=== PATIENT | female | born 1935 | race Caucasian/White ===

== ENCOUNTER → 2017-03-12 | Outpatient (CLI) | payer OTHER ==
[~2017-03-12] MED LIST: ACULAR0.4 ML OPH; ALEVE PM CAPLE1 EACH PO; AMARYL2 MG PO; AMOXICILLIN875 MG PO; ASPIR-LOW81 MG PO; ATIVAN0.5 MG PO; CLONIDINE0.2 MG PO; CYMBALTA30 MG PO; Carafate1 GM PO; FENOFIBRATE145 M1 PO; FERROUS SULFAT325 MG PO; FLUOXETINE20 MG PO; LOVASTATIN20 MG PO; NEURONTIN300 MG PO; NEXIUM40 MG PO; OCUFLOX 0.3% 5 M5 ML OPH; OXYCODONE AND A1 T12 PO; PERCOCET 325 MG1 TA3 PO; PHENYLEPHRINE 2.5% OU; PRED FORTE 1 ML1 ML OPH; PREDNISONE5 MG PO; PRILOSEC20 MG PO; PROTONIX40 MG PO; VITAMIN D50000 I3 PO; ZESTRIL20 MG PO
== END | disposition home or self-care (01) ==
LOC: RAD 11:10
DX: R06.02 Shortness of breath (principal); I10 Essential (primary) hypertension; E11.9 Type 2 diabetes mellitus without complications

== ENCOUNTER 2017-11-22 10:22 | Emergency (ER) | payer OTHER ==
[~2017-11-22] VITALS: Ht 162.5 cm; Wt 76.7 kg
[2017-11-22 10:36] VITALS: BP 145/75
[2017-11-22 10:55] LABS: BILIRUBIN NEGATIVE (NEGATIVE); BLOOD 2+ (NEGATIVE); CLARITY CLOUDY (CLEAR); COLOR YELLOW (YELLOW); GLUCOSE NEGATIVE (NEGATIVE); KETONE NEGATIVE (NEGATIVE); LEUKO ESTERASE 3+ (NEGATIVE); NITRITE POSITIVE (NEGATIVE); UROBILINOGEN 0.2 E.U./dl (0.2-1.0)
[2017-11-22 11:10] LABS: BACTERIA 4+; RBC TNTC rbc/hpf (0-2); WBC TNTC wbc/hpf (0-5)
[2017-11-22] MEDS ORDERED: ZOFRAN4 MG PO (11:15)
[2017-11-22] MEDS ORDERED: PYRIDIUM200 M1 PO (11:15)
[2017-11-22] MEDS ORDERED: LEVAQUIN750 M1 PO (11:15)
== END 2017-11-22 11:19 | disposition home or self-care (01) ==
LOC: ED 10:22
PROVIDERS: Emergency Medicine
DX: N30.01 Acute cystitis with hematuria (principal); R03.0 Elevated blood-pressure reading, without diagnosis of hypertension; Z88.1 Allergy status to other antibiotic agents; Z79.899 Other long term (current) drug therapy; Z79.82 Long term (current) use of aspirin

== ENCOUNTER → 2018-02-18 | Outpatient (CLI) | payer OTHER ==
[~2018-02-18] MED LIST changes: +LEVAQUIN750 M1 PO; +PYRIDIUM200 M1 PO; +ZOFRAN4 MG PO
[2018-02-18 13:56] LABS: BASO # 0.1 10*3/uL (0.0-0.1); BASO % 0.7 % (0.0-1.0); EOS # 0.2 10*3/uL (0.0-0.4); EOS % 2.1 % (1.0-4.0); HEMATOCRIT 39.5 % (37.0-47.0); LYMPH # 0.9 10*3/uL (1.3-4.4); LYMPH % 12.6 % (27.0-41.0); MEAN CELL VOLUME 87.2 fl (81.0-99.0); MEAN CORPUSCULAR HGB 26.5 pg (27.0-31.0); MEAN CORPUSCULAR HGB CONC 30.4 g/dl (33.0-37.0); MEAN PLATELET VOLUME 11.5 fl (9.6-12.3); MONO # 0.5 10*3/uL (0.1-1.0); MONO % 6.8 % (3.0-9.0); NEUT # 5.4 10*3/uL (2.3-7.9); NEUT % 76.5 % (47.0-73.0); PLATELET COUNT AUTOMATED 257 10*3/uL (130-400); RED BLOOD COUNT 4.53 10*6/uL (4.10-5.10); RED CELL DISTRI WIDTH 14.5 % (0-14.5); WHITE BLOOD COUNT 7.1 10*3/uL (4.8-10.8)
[2018-02-18 14:12] LABS: ALBUMIN 3.6 gm/dl (3.1-4.5); ALKALINE PHOSPHATASE 179 U/L (45-117); BUN 15 mg/dl (7-24); CHLORIDE 102 mmol/L (98-107); CREATININE 0.97 mg/dL (0.55-1.02); POTASSIUM 3.9 mmol/L (3.5-5.1); SGOT/AST 53 IU/L (3-35); SGPT/ALT 79 U/L (12-78); SODIUM 134 mmol/L (136-145); TOTAL PROTEIN 7.2 gm/dL (6.4-8.2)
[2018-02-18 15:23] LABS: BILIRUBIN NEGATIVE (NEGATIVE); BLOOD NEGATIVE (NEGATIVE); CLARITY CLEAR (CLEAR); COLOR YELLOW (YELLOW); GLUCOSE NEGATIVE (NEGATIVE); KETONE NEGATIVE (NEGATIVE); LEUKO ESTERASE NEGATIVE (NEGATIVE); NITRITE NEGATIVE (NEGATIVE); PH 6.5 (5.0-9.0); SPECIFIC GRAVITY <= 1.005 (1.005-1.030); UROBILINOGEN 0.2 E.U./dl (0.2-1.0)
[2018-02-18 16:02] LABS: EPITHELIAL CELLS 0-2; WBC 0-2 wbc/hpf (0-5)
== END | disposition home or self-care (01) ==
LOC: US 12:30 → LAB 12:44
PROVIDERS: Urology
DX: I10 Essential (primary) hypertension (principal); N39.0 Urinary tract infection, site not specified; N28.89 Other specified disorders of kidney and ureter

== ENCOUNTER 2019-11-17 01:30 | Emergency (ER) | payer OTHER ==
[~2019-11-17] VITALS: Ht 162.5 cm; Wt 68.9 kg
[2019-11-17 01:32] VITALS: BP 215/126
[2019-11-17 01:57] LABS: BASO % 0.2 % (0.0-1.0); EOS # 0.1 10*3/uL (0.0-0.4); EOS % 1.7 % (1.0-4.0); HEMATOCRIT 42.1 % (37.0-47.0); HEMOGLOBIN 13.3 g/dl (12.0-16.0); LYMPH # 0.8 10*3/uL (1.3-4.4); LYMPH % 13.4 % (27.0-41.0); MEAN CELL VOLUME 89.4 fl (81.0-99.0); MEAN CORPUSCULAR HGB 28.2 pg (27.0-31.0); MEAN CORPUSCULAR HGB CONC 31.6 g/dl (33.0-37.0); MEAN PLATELET VOLUME 10.5 fl (9.6-12.3); MONO # 0.5 10*3/uL (0.1-1.0); MONO % 8.3 % (3.0-9.0); NEUT # 4.5 10*3/uL (2.3-7.9); NEUT % 75.7 % (47.0-73.0); PLATELET COUNT AUTOMATED 167 10*3/uL (130-400); RED BLOOD COUNT 4.71 10*6/uL (4.10-5.10); RED CELL DISTRI WIDTH 13.9 % (0-14.5); WHITE BLOOD COUNT 5.9 10*3/uL (4.8-10.8)
[2019-11-17 02:17] LABS: ALBUMIN 3.6 gm/dl (3.1-4.5); ALKALINE PHOSPHATASE 103 U/L (45-117); BUN 16 mg/dl (7-24); CHLORIDE 106 mmol/L (98-107); POTASSIUM 4.3 mmol/L (3.5-5.1); SGOT/AST 16 IU/L (3-35); SGPT/ALT 19 U/L (12-78); SODIUM 141 mmol/L (136-145); TOTAL PROTEIN 6.9 gm/dL (6.4-8.2)
[2019-11-17 02:45] LABS: ACT PARTIAL THROMBO TIME 27.7 SECONDS (20.0-32.1); INTERNATIONAL NORM RATIO 0.9 (2.0-3.5)
== END 2019-11-17 03:50 | disposition other institution (70) ==
LOC: ED 01:30
PROVIDERS: Emergency Medicine
DX: S70.02XA Contusion of left hip, initial encounter (principal); R33.9 Retention of urine, unspecified; I10 Essential (primary) hypertension; K21.9 Gastro-esophageal reflux disease without esophagitis; E78.00 Pure hypercholesterolemia, unspecified; M19.90 Unspecified osteoarthritis, unspecified site; Z88.2 Allergy status to sulfonamides; Z79.2 Long term (current) use of antibiotics; Z79.899 Other long term (current) drug therapy; Z79.82 Long term (current) use of aspirin; Z90.49 Acquired absence of other specified parts of digestive tract; Z90.710 Acquired absence of both cervix and uterus; Z98.61 Coronary angioplasty status; Z98.890 Other specified postprocedural states; Z86.73 Personal history of transient ischemic attack (TIA), and cerebral infarction without residual deficits; W18.11XA Fall from or off toilet without subsequent striking against object, initial encounter; Y93.89 Activity, other specified; Y92.091 Bathroom in other non-institutional residence as the place of occurrence of the external cause; Y99.8 Other external cause status

== ENCOUNTER 2019-12-14 16:12 | Inpatient (IN) | payer OTHER ==
[~2019-12-14] VITALS: Ht 160 cm; Wt 68.4 kg
[2019-12-14 16:13] VITALS: BP 96/52
[2019-12-14 16:58] LABS: BASO % 0.4 % (0.0-1.0); EOS # 0.4 10*3/uL (0.0-0.4); EOS % 4.5 % (1.0-4.0); HEMATOCRIT 40.4 % (37.0-47.0); HEMOGLOBIN 12.7 g/dl (12.0-16.0); LYMPH # 1.5 10*3/uL (1.3-4.4); LYMPH % 18.1 % (27.0-41.0); MEAN CELL VOLUME 90.8 fl (81.0-99.0); MEAN CORPUSCULAR HGB 28.5 pg (27.0-31.0); MEAN CORPUSCULAR HGB CONC 31.4 g/dl (33.0-37.0); MEAN PLATELET VOLUME 10.6 fl (9.6-12.3); MONO # 0.7 10*3/uL (0.1-1.0); NEUT # 5.4 10*3/uL (2.3-7.9); NEUT % 67.4 % (47.0-73.0); PLATELET COUNT AUTOMATED 156 10*3/uL (130-400); RED BLOOD COUNT 4.45 10*6/uL (4.10-5.10); RED CELL DISTRI WIDTH 14.4 % (0-14.5)
[2019-12-14 17:09] LABS: ACT PARTIAL THROMBO TIME 30.3 SECONDS (20.0-32.1); INTERNATIONAL NORM RATIO 0.9 (2.0-3.5)
[2019-12-14 17:16] LABS: ALBUMIN 3.2 gm/dl (3.1-4.5); ALKALINE PHOSPHATASE 149 U/L (45-117); BUN 18 mg/dl (7-24); CHLORIDE 105 mmol/L (98-107); CREATININE 1.25 mg/dL (0.55-1.02); POTASSIUM 3.9 mmol/L (3.5-5.1); SGOT/AST 12 IU/L (3-35); SGPT/ALT 16 U/L (12-78); SODIUM 141 mmol/L (136-145); TOTAL PROTEIN 6.9 gm/dL (6.4-8.2)
[2019-12-14 17:17] LABS: TROPONIN I < 0.015 ng/ml (<0.045)
[2019-12-14 18:00] VITALS: BP 134/47
[2019-12-14] MEDS ORDERED: TYLENOL325 M1 PO (19:30)
[2019-12-14 20:00] VITALS: BP 141/79
[2019-12-14] MEDS ORDERED: DULCOLAX10 M1 R (21:33)
[2019-12-14] MEDS ORDERED: ASPERCREME76.5 GM T (21:33)
[2019-12-14] MEDS ORDERED: CIPRO500 MG PO (21:34)
[2019-12-14] MEDS ORDERED: CRESTOR10 M1 PO (21:37)
[2019-12-14] MEDS ORDERED: Ipratropium Brom3 ML INH (21:38)
[2019-12-14] MEDS ORDERED: APRESOLINE10 MG PO (21:39)
[2019-12-14] MEDS ORDERED: HUMALOG100 UNIT/2 SC (21:42)
[2019-12-14] MEDS ORDERED: JANUVIA25 MG PO (21:42)
[2019-12-14] MEDS ORDERED: LIDODERM1 EACH T (21:44)
[2019-12-14] MEDS ORDERED: LASIX20 MG PO (21:44)
[2019-12-14] MEDS ORDERED: MELATONIN5 M7 PO (21:45)
[2019-12-14] MEDS ORDERED: GLUCOPHAGE500 M1 PO (21:46)
[2019-12-14] MEDS ORDERED: MUCINEX1200 M1 PO (21:48)
[2019-12-14] MEDS ORDERED: MILK OF MA400 MG/5 M PO (21:48)
[2019-12-14] MEDS ORDERED: NITROSTAT0.4 MG SL (21:49)
[2019-12-14] MEDS ORDERED: OXYCODONE HCL10 M1 PO (21:50)
[2019-12-14] MEDS ORDERED: PERCOCET 5-3251 EACH PO ×2 (21:51→21:52)
[2019-12-14] MEDS ORDERED: PLAVIX75 M1 PO (21:53)
[2019-12-14] MEDS ORDERED: MIRALAX119 GM PO (21:54)
[2019-12-14] MEDS ORDERED: PROTONIX IV40 MG PO (21:55)
[2019-12-14] MEDS ORDERED: REMERON15 M2 PO (21:55)
[2019-12-14] MEDS ORDERED: SENOKOT8.6 MG PO (21:57)
[2019-12-14] MEDS ORDERED: TOLTERODINE TART4 M1 PO (21:58)
[2019-12-15] VITALS: BP 111/61
[2019-12-15 06:44] LABS: BASO % 0.3 % (0.0-1.0); EOS # 0.3 10*3/uL (0.0-0.4); EOS % 5.2 % (1.0-4.0); HEMATOCRIT 36.6 % (37.0-47.0); HEMOGLOBIN 11.6 g/dl (12.0-16.0); LYMPH # 1.1 10*3/uL (1.3-4.4); LYMPH % 19.4 % (27.0-41.0); MEAN CELL VOLUME 88.4 fl (81.0-99.0); MEAN CORPUSCULAR HGB CONC 31.7 g/dl (33.0-37.0); MEAN PLATELET VOLUME 10.9 fl (9.6-12.3); MONO # 0.5 10*3/uL (0.1-1.0); MONO % 9.4 % (3.0-9.0); NEUT # 3.7 10*3/uL (2.3-7.9); NEUT % 64.7 % (47.0-73.0); PLATELET COUNT AUTOMATED 129 10*3/uL (130-400); RED BLOOD COUNT 4.14 10*6/uL (4.10-5.10); RED CELL DISTRI WIDTH 14.4 % (0-14.5); WHITE BLOOD COUNT 5.7 10*3/uL (4.8-10.8)
[2019-12-15 06:53] LABS: BUN 14 mg/dl (7-24); CHLORIDE 110 mmol/L (98-107); CREATININE 0.86 mg/dL (0.55-1.02); PHOSPHOROUS 3.4 mg/dL (2.5-4.9); POTASSIUM 3.7 mmol/L (3.5-5.1); SODIUM 144 mmol/L (136-145)
[2019-12-15 08:00] VITALS: BP 150/88
[2019-12-15 12:00] VITALS: BP 137/75
[2019-12-15 16:00] VITALS: BP 160/75
[2019-12-15 20:00] VITALS: BP 184/72
[2019-12-15 21:42] LABS: BILIRUBIN NEGATIVE (NEGATIVE); BLOOD NEGATIVE (NEGATIVE); CLARITY CLEAR (CLEAR); COLOR YELLOW (YELLOW); GLUCOSE NEGATIVE (NEGATIVE); KETONE NEGATIVE (NEGATIVE); LEUKO ESTERASE 2+ (NEGATIVE); NITRITE NEGATIVE (NEGATIVE); SPECIFIC GRAVITY 1.025 (1.005-1.030); UROBILINOGEN 0.2 E.U./dl (0.2-1.0)
[2019-12-15 21:43] LABS: WBC 21-30 wbc/hpf (0-5)
[2019-12-15 21:44] LABS: BACTERIA 1+
[2019-12-16] VITALS: BP 173/68
[2019-12-16 00:30] VITALS: BP 158/78
[2019-12-16 05:55] VITALS: BP 154/86
[2019-12-16 08:00] VITALS: BP 149/57
[2019-12-16 12:00] VITALS: BP 151/69
[2019-12-16 16:00] VITALS: BP 143/63
== END 2019-12-16 16:55 | disposition short-term general hospital (02) | DRG 682 ==
LOC: ED 16:12 → EDHOLD 17:38 → 5E 17:38
PROVIDERS: Emergency Medicine; Registered Nurse; Student in an Organized Health Care Education/Training Program; ADMIT Emergency Medicine
DX: N17.0 Acute kidney failure with tubular necrosis (principal); S72.145A Nondisplaced intertrochanteric fracture of left femur, initial encounter for closed fracture; G93.41 Metabolic encephalopathy; E44.0 Moderate protein-calorie malnutrition; N30.00 Acute cystitis without hematuria; I95.9 Hypotension, unspecified; R79.89 Other specified abnormal findings of blood chemistry; E83.42 Hypomagnesemia; W19.XXXA Unspecified fall, initial encounter; Y93.89 Activity, other specified; Y92.89 Other specified places as the place of occurrence of the external cause; Y99.8 Other external cause status; Z68.26 Body mass index [BMI] 26.0-26.9, adult; Z88.2 Allergy status to sulfonamides; Z79.899 Other long term (current) drug therapy; Z79.82 Long term (current) use of aspirin; Z90.49 Acquired absence of other specified parts of digestive tract; Z90.710 Acquired absence of both cervix and uterus; Z82.49 Family history of ischemic heart disease and other diseases of the circulatory system; Z83.6 Family history of other diseases of the respiratory system; Z88.8 Allergy status to other drugs, medicaments and biological substances; Z91.040 Latex allergy status; Z79.4 Long term (current) use of insulin

== ENCOUNTER 2020-01-01 09:32 | Inpatient (IN) | payer OTHER ==
[~2020-01-01] VITALS: Ht 162.5 cm; Wt 69.6 kg
[~2020-01-01 09:32] MED LIST changes: +APRESOLINE10 MG PO; +ASPERCREME76.5 GM T; +CIPRO500 MG PO; +CRESTOR10 M1 PO; +DULCOLAX10 M1 R; +GLUCOPHAGE500 M1 PO; +HUMALOG100 UNIT/2 SC; +Ipratropium Brom3 ML INH; +JANUVIA25 MG PO; +LASIX20 MG PO; +LIDODERM1 EACH T; +MELATONIN5 M7 PO; +MILK OF MA400 MG/5 M PO; +MIRALAX119 GM PO; +MUCINEX1200 M1 PO; +NITROSTAT0.4 MG SL; +OXYCODONE HCL10 M1 PO; +PERCOCET 5-3251 EACH PO; +PLAVIX75 M1 PO; +PROTONIX IV40 MG PO; +REMERON15 M2 PO; +SENOKOT8.6 MG PO; +TOLTERODINE TART4 M1 PO; +TYLENOL325 M1 PO
[2020-01-01 09:34] VITALS: BP 98/46
[2020-01-01 11:09] LABS: ALBUMIN 2.8 gm/dl (3.1-4.5); ALKALINE PHOSPHATASE 113 U/L (45-117); BUN 16 mg/dl (7-24); CHLORIDE 104 mmol/L (98-107); CREATININE 0.95 mg/dL (0.55-1.02); LIPASE 50 U/L (73-393); POTASSIUM 3.8 mmol/L (3.5-5.1); SGOT/AST 11 IU/L (3-35); SGPT/ALT 10 U/L (12-78); SODIUM 138 mmol/L (136-145); TOTAL PROTEIN 6.2 gm/dL (6.4-8.2)
[2020-01-01 11:41] LABS: BASO % 0.3 % (0.0-1.0); EOS % 0.1 % (1.0-4.0); HEMATOCRIT 27.7 % (37.0-47.0); HEMOGLOBIN 8.6 g/dl (12.0-16.0); LYMPH % 8.8 % (27.0-41.0); MEAN CELL VOLUME 94.2 fl (81.0-99.0); MEAN CORPUSCULAR HGB 29.3 pg (27.0-31.0); MEAN PLATELET VOLUME 10.3 fl (9.6-12.3); MONO # 0.9 10*3/uL (0.1-1.0); MONO % 8.2 % (3.0-9.0); NEUT # 9.1 10*3/uL (2.3-7.9); PLATELET COUNT AUTOMATED 320 10*3/uL (130-400); RED BLOOD COUNT 2.94 10*6/uL (4.10-5.10); RED CELL DISTRI WIDTH 17.1 % (0-14.5); WHITE BLOOD COUNT 11.1 10*3/uL (4.8-10.8)
[2020-01-01 12:51] LABS: BILIRUBIN NEGATIVE (NEGATIVE); BLOOD NEGATIVE (NEGATIVE); CLARITY CLOUDY (CLEAR); COLOR YELLOW (YELLOW); GLUCOSE NEGATIVE (NEGATIVE); KETONE NEGATIVE (NEGATIVE); LEUKO ESTERASE 1+ (NEGATIVE); NITRITE NEGATIVE (NEGATIVE); UROBILINOGEN 0.2 E.U./dl (0.2-1.0); WBC 51-100 wbc/hpf (0-5)
[2020-01-01 12:52] LABS: BACTERIA 1+
[2020-01-01 14:15] VITALS: BP 125/41
[2020-01-01 16:00] VITALS: BP 145/64
[2020-01-01 20:00] VITALS: BP 111/70
[2020-01-02] VITALS: BP 143/70
[2020-01-02 06:06] LABS: ALBUMIN 2.5 gm/dl (3.1-4.5); ALKALINE PHOSPHATASE 107 U/L (45-117); BUN 9 mg/dl (7-24); CHLORIDE 108 mmol/L (98-107); CREATININE 0.57 mg/dL (0.55-1.02); PHOSPHOROUS 2.9 mg/dL (2.5-4.9); POTASSIUM 3.4 mmol/L (3.5-5.1); SGOT/AST 17 IU/L (3-35); SGPT/ALT 10 U/L (12-78); SODIUM 139 mmol/L (136-145)
[2020-01-02 06:23] LABS: ACT PARTIAL THROMBO TIME 34.2 SECONDS (20.0-32.1)
[2020-01-02 07:26] LABS: BASO % 0.4 % (0.0-1.0); EOS # 0.3 10*3/uL (0.0-0.4); EOS % 3.8 % (1.0-4.0); HEMATOCRIT 29.3 % (37.0-47.0); LYMPH # 1.1 10*3/uL (1.3-4.4); LYMPH % 15.8 % (27.0-41.0); MEAN CELL VOLUME 95.4 fl (81.0-99.0); MEAN CORPUSCULAR HGB 29.3 pg (27.0-31.0); MEAN CORPUSCULAR HGB CONC 30.7 g/dl (33.0-37.0); MEAN PLATELET VOLUME 10.4 fl (9.6-12.3); MONO # 0.6 10*3/uL (0.1-1.0); MONO % 9.2 % (3.0-9.0); NEUT # 4.8 10*3/uL (2.3-7.9); NEUT % 69.8 % (47.0-73.0); PLATELET COUNT AUTOMATED 312 10*3/uL (130-400); RED BLOOD COUNT 3.07 10*6/uL (4.10-5.10); RED CELL DISTRI WIDTH 16.8 % (0-14.5); WHITE BLOOD COUNT 6.8 10*3/uL (4.8-10.8)
[2020-01-02 08:00] VITALS: BP 130/90
[2020-01-02 12:00] VITALS: BP 124/57
[2020-01-02 16:00] VITALS: BP 149/59
[2020-01-02 20:00] VITALS: BP 131/76
[2020-01-02 22:00] VITALS: BP 131/76
[2020-01-03] VITALS: BP 134/59
[2020-01-03 12:00] VITALS: BP 111/68
[2020-01-03 16:00] VITALS: BP 153/66
[2020-01-03 20:00] VITALS: BP 148/61
[2020-01-04] VITALS: BP 129/82
[2020-01-04 06:00] LABS: ALBUMIN 2.6 gm/dl (3.1-4.5); ALKALINE PHOSPHATASE 110 U/L (45-117); BUN 9 mg/dl (7-24); CHLORIDE 109 mmol/L (98-107); CREATININE 0.61 mg/dL (0.55-1.02); POTASSIUM 3.8 mmol/L (3.5-5.1); SGOT/AST 17 IU/L (3-35); SGPT/ALT 12 U/L (12-78); SODIUM 139 mmol/L (136-145); TOTAL PROTEIN 6.1 gm/dL (6.4-8.2)
[2020-01-04 06:09] LABS: BASO % 0.6 % (0.0-1.0); EOS # 0.3 10*3/uL (0.0-0.4); EOS % 6.6 % (1.0-4.0); HEMATOCRIT 28.3 % (37.0-47.0); HEMOGLOBIN 8.8 g/dl (12.0-16.0); LYMPH # 1.1 10*3/uL (1.3-4.4); LYMPH % 21.6 % (27.0-41.0); MEAN CELL VOLUME 92.8 fl (81.0-99.0); MEAN CORPUSCULAR HGB 28.9 pg (27.0-31.0); MEAN CORPUSCULAR HGB CONC 31.1 g/dl (33.0-37.0); MEAN PLATELET VOLUME 10.2 fl (9.6-12.3); MONO # 0.5 10*3/uL (0.1-1.0); MONO % 9.2 % (3.0-9.0); NEUT # 3.2 10*3/uL (2.3-7.9); NEUT % 60.8 % (47.0-73.0); PLATELET COUNT AUTOMATED 341 10*3/uL (130-400); RED BLOOD COUNT 3.05 10*6/uL (4.10-5.10); RED CELL DISTRI WIDTH 16.1 % (0-14.5); WHITE BLOOD COUNT 5.2 10*3/uL (4.8-10.8)
[2020-01-04 08:00] VITALS: BP 132/66
[2020-01-04 12:00] VITALS: BP 128/70
[2020-01-04 16:00] VITALS: BP 149/64
[2020-01-04 20:00] VITALS: BP 149/73
[2020-01-05] VITALS: BP 139/56
[2020-01-05 06:04] LABS: BASO % 0.4 % (0.0-1.0); EOS # 0.3 10*3/uL (0.0-0.4); HEMATOCRIT 29.4 % (37.0-47.0); HEMOGLOBIN 9.2 g/dl (12.0-16.0); LYMPH # 1.3 10*3/uL (1.3-4.4); LYMPH % 25.4 % (27.0-41.0); MEAN CORPUSCULAR HGB 29.1 pg (27.0-31.0); MEAN CORPUSCULAR HGB CONC 31.3 g/dl (33.0-37.0); MEAN PLATELET VOLUME 9.8 fl (9.6-12.3); MONO # 0.5 10*3/uL (0.1-1.0); MONO % 9.6 % (3.0-9.0); NEUT # 2.8 10*3/uL (2.3-7.9); NEUT % 56.6 % (47.0-73.0); PLATELET COUNT AUTOMATED 347 10*3/uL (130-400); RED BLOOD COUNT 3.16 10*6/uL (4.10-5.10); RED CELL DISTRI WIDTH 15.9 % (0-14.5)
[2020-01-05 06:28] LABS: BUN 11 mg/dl (7-24); CHLORIDE 111 mmol/L (98-107); CREATININE 0.76 mg/dL (0.55-1.02); POTASSIUM 3.7 mmol/L (3.5-5.1); SODIUM 144 mmol/L (136-145)
[2020-01-05 08:00] VITALS: BP 135/58
[2020-01-05 12:00] VITALS: BP 139/55
[2020-01-05 16:00] VITALS: BP 130/65
[2020-01-05 20:00] VITALS: BP 155/70; BP 155/90
[2020-01-06] VITALS: BP 131/56; BP 155/90
[2020-01-06 08:00] VITALS: BP 166/67
[2020-01-06 12:00] VITALS: BP 146/59
[2020-01-06 16:00] VITALS: BP 133/60
[2020-01-06 20:00] VITALS: BP 149/58
[2020-01-07] VITALS: BP 159/70
[2020-01-07 05:39] VITALS: BP 142/84
[2020-01-07 08:00] VITALS: BP 172/81
[2020-01-07 12:00] VITALS: BP 129/61
[2020-01-07] MEDS ORDERED: OXYCODONE HCL10 M1 PO (13:06)
[2020-01-07] MEDS ORDERED: NEURONTIN300 MG PO (13:06)
[2020-01-07] MEDS ORDERED: PERCOCET 5-3251 EACH PO (13:06)
== END 2020-01-07 14:30 | disposition other institution (70) | DRG 194 ==
LOC: ED 09:32 → 4E 13:13 → EDHOLD 13:13 → 4E 13:34
PROVIDERS: Family Medicine; Internal Medicine; Physician Assistant; ADMIT Emergency Medicine
DX: J18.9 Pneumonia, unspecified organism (principal); N30.00 Acute cystitis without hematuria; G45.9 Transient cerebral ischemic attack, unspecified; E44.0 Moderate protein-calorie malnutrition; I95.9 Hypotension, unspecified; R79.89 Other specified abnormal findings of blood chemistry; D64.9 Anemia, unspecified; R29.898 Other symptoms and signs involving the musculoskeletal system; I50.9 Heart failure, unspecified; E83.42 Hypomagnesemia; R62.7 Adult failure to thrive; I25.10 Atherosclerotic heart disease of native coronary artery without angina pectoris; I11.0 Hypertensive heart disease with heart failure; K59.00 Constipation, unspecified; I35.0 Nonrheumatic aortic (valve) stenosis; E11.65 Type 2 diabetes mellitus with hyperglycemia; I15.2 Hypertension secondary to endocrine disorders; K21.9 Gastro-esophageal reflux disease without esophagitis; E78.5 Hyperlipidemia, unspecified; F32.9 Major depressive disorder, single episode, unspecified; F41.9 Anxiety disorder, unspecified; G47.00 Insomnia, unspecified; N32.81 Overactive bladder; Z79.4 Long term (current) use of insulin; Z88.2 Allergy status to sulfonamides; Z91.040 Latex allergy status; Z90.49 Acquired absence of other specified parts of digestive tract; Z82.49 Family history of ischemic heart disease and other diseases of the circulatory system; Z83.6 Family history of other diseases of the respiratory system; Z79.899 Other long term (current) drug therapy; Z68.26 Body mass index [BMI] 26.0-26.9, adult

== ENCOUNTER 2022-09-25 15:07 | Emergency (ER) | payer OTHER ==
[2022-09-25] MEDS ORDERED: Glimepiride1 MG PO (18:31)
[2022-09-25] MEDS ORDERED: Carafate1 GM PO (18:31)
[2022-09-25] MEDS ORDERED: LISINOPRIL20 MG PO (18:32)
[2022-09-25] MEDS ORDERED: PANTOPRAZOLE SO40 MG PO (18:33)
[2022-09-25] MEDS ORDERED: JANUVIA50 MG PO (18:33)
[2022-09-25] MEDS ORDERED: FENOFIBRATE MI134 MG PO (18:36)
[2022-09-25] MEDS ORDERED: TRAZODONE50 MG PO (18:36)
[2022-09-25] MEDS ORDERED: METOPROLOL SUCC25 M2 PO (19:10)
[2022-09-25] MEDS ORDERED: CLOPIDOGREL75 MG PO (19:11)
[2022-09-25] MEDS ORDERED: NEURONTIN300 MG PO (19:12)
[2022-09-25] MEDS ORDERED: SERTRALINE HYD100 MG PO (19:13)
[2022-09-25] MEDS ORDERED: AMLODIPINE BESYL5 MG PO (19:14)
[2022-09-25] MEDS ORDERED: JARDIANCE25 MG PO (19:17)
[2022-09-25] MEDS ORDERED: METHENAMINE HIPP1 G1 PO (19:17)
[2022-09-25] MEDS ORDERED: ROSUVASTATIN CA10 MG PO (19:20)
[2022-09-25] MEDS ORDERED: OXYBUTYNIN10 MG PO (19:21)
[2022-09-25] MEDS ORDERED: TAMSULOSIN HCL0.4 MG PO (19:22)
[2022-09-25] MEDS ORDERED: CLARITIN10 MG PO (19:41)
[2022-09-25] MEDS ORDERED: MIRALAX119 GM PO (19:43)
[2022-09-25] MEDS ORDERED: FAMOTIDINE40 MG PO (19:43)
[2022-09-25] MEDS ORDERED: MELATONIN5 M1 PO (19:46)
[2022-09-25 20:11] LABS: BASO % 0.2 % (0.0-1.0); EOS # 0.1 10*3/uL (0.0-0.4); EOS % 0.9 % (1.0-4.0); HEMATOCRIT 39.7 % (37.0-47.0); LYMPH # 0.9 10*3/uL (1.3-4.4); LYMPH % 8.4 % (27.0-41.0); MEAN CELL VOLUME 87.3 fl (81.0-99.0); MEAN CORPUSCULAR HGB 26.4 pg (27.0-31.0); MEAN CORPUSCULAR HGB CONC 30.2 g/dl (33.0-37.0); MEAN PLATELET VOLUME 11.5 fl (9.6-12.3); MONO # 0.8 10*3/uL (0.1-1.0); MONO % 7.4 % (3.0-9.0); NEUT # 8.8 10*3/uL (2.3-7.9); NEUT % 82.4 % (47.0-73.0); PLATELET COUNT AUTOMATED 204 10*3/uL (130-400); RED BLOOD COUNT 4.55 10*6/uL (4.10-5.10); RED CELL DISTRI WIDTH 14.4 % (0-14.5); WHITE BLOOD COUNT 10.7 10*3/uL (4.8-10.8)
[2022-09-25 20:28] LABS: CREATININE 1.34 mg/dL (0.55-1.02); POTASSIUM 4.1 mmol/L (3.4-5.1)
[2022-09-26 00:16] VITALS: BP 163/62
== END 2022-09-26 00:26 | disposition short-term general hospital (02) ==
LOC: ED 15:07
PROVIDERS: Nurse Practitioner Family
DX: S72.001A Fracture of unspecified part of neck of right femur, initial encounter for closed fracture (principal); Z88.2 Allergy status to sulfonamides; Z91.040 Latex allergy status; Z88.1 Allergy status to other antibiotic agents; Z79.899 Other long term (current) drug therapy; Z79.82 Long term (current) use of aspirin; Z90.49 Acquired absence of other specified parts of digestive tract; Z98.890 Other specified postprocedural states; Z90.710 Acquired absence of both cervix and uterus; W18.39XA Other fall on same level, initial encounter; Y93.89 Activity, other specified; Y92.89 Other specified places as the place of occurrence of the external cause; Y99.8 Other external cause status